=== PATIENT | male | born 1965 | race Caucasian/White ===

== ENCOUNTER 2021-01-25 18:10 | Inpatient (IN) | payer OTHER ==
[~2021-01-25] VITALS: Ht 172.7 cm; Wt 93.2 kg
[~2021-01-25 18:10] MED LIST: ATARAX25 MG PO; KEFLEX500 MG PO; MOTRIN800 MG PO; NAPROSYN500 MG PO; NKHM; PREDNICOT10 MG PO; PREDNISONE10 MG PO; VICODIN 5/500 505 MG PO
[2021-01-25 19:17] LABS: BASO % 0.3 % (0.0-1.0); EOS # 0.1 10*3/uL (0.0-0.4); EOS % 0.6 % (1.0-4.0); LYMPH # 1.4 10*3/uL (1.3-4.4); LYMPH % 17.4 % (27.0-41.0); MEAN CELL VOLUME 87.9 fl (80.0-94.0); MEAN CORPUSCULAR HGB 30.4 pg (27.0-31.0); MEAN CORPUSCULAR HGB CONC 34.6 g/dl (33.0-37.0); MEAN PLATELET VOLUME 11.2 fl (9.6-12.3); MONO # 0.5 10*3/uL (0.1-1.0); MONO % 6.9 % (3.0-9.0); NEUT # 5.8 10*3/uL (2.3-7.9); NEUT % 73.9 % (47.0-73.0); PLATELET COUNT AUTOMATED 245 10*3/uL (130-400); RED BLOOD COUNT 5.46 10*6/uL (4.50-5.90); RED CELL DISTRI WIDTH 12.7 % (0-14.5); WHITE BLOOD COUNT 7.8 10*3/uL (4.8-10.8)
[2021-01-25 19:26] LABS: ALKALINE PHOSPHATASE 143 U/L (45-117); BUN 16 mg/dl (7-24); CHLORIDE 101 mmol/L (98-107); CREATININE 1.22 mg/dL (0.70-1.30); LIPASE 106 U/L (73-393); POTASSIUM 4.5 mmol/L (3.5-5.1); SGOT/AST 12 IU/L (3-35); SGPT/ALT 33 U/L (12-78); SODIUM 134 mmol/L (136-145); TOTAL PROTEIN 7.5 gm/dL (6.4-8.2)
[2021-01-25 19:27] VITALS: BP 155/94
[2021-01-25 19:27] LABS: TROPONIN I < 0.015 ng/ml (<0.045)
[2021-01-25 19:34] VITALS: BP 155/95
[2021-01-25 20:16] LABS: BILIRUBIN Negative (Negative); BLOOD Negative (Negative); CLARITY Clear (Clear); COLOR Yellow (Yellow); GLUCOSE 3+ (Negative); KETONE 1+ (Negative); LEUKO ESTERASE Negative (Negative); NITRITE Negative (Negative); SPECIFIC GRAVITY >= 1.030 (1.001-1.030); UROBILINOGEN 0.2 E.U./dl (0.0-1.0)
[2021-01-25 20:23] LABS: BACTERIA TRACE; EPITHELIAL CELLS 0-2; RBC 0-2 rbc/hpf (0-2); WBC 0-2 wbc/hpf (0-5)
[2021-01-26] VITALS (9 sets, daily range): BP systolic 95–140; BP diastolic 54–87
[2021-01-26 06:18] LABS: BASO % 0.3 % (0.0-1.0); EOS # 0.1 10*3/uL (0.0-0.4); EOS % 1.2 % (1.0-4.0); HEMATOCRIT 47.1 % (42.0-52.0); LYMPH # 2.1 10*3/uL (1.3-4.4); LYMPH % 27.9 % (27.0-41.0); MEAN CORPUSCULAR HGB 30.2 pg (27.0-31.0); MEAN PLATELET VOLUME 11.7 fl (9.6-12.3); MONO # 0.6 10*3/uL (0.1-1.0); MONO % 7.8 % (3.0-9.0); NEUT # 4.6 10*3/uL (2.3-7.9); NEUT % 61.7 % (47.0-73.0); PLATELET COUNT AUTOMATED 219 10*3/uL (130-400); RED BLOOD COUNT 5.29 10*6/uL (4.50-5.90); RED CELL DISTRI WIDTH 12.8 % (0-14.5); WHITE BLOOD COUNT 7.4 10*3/uL (4.8-10.8)
[2021-01-26 06:29] LABS: ALBUMIN 3.5 gm/dl (3.1-4.5); ALKALINE PHOSPHATASE 111 U/L (45-117); BUN 13 mg/dl (7-24); CHLORIDE 105 mmol/L (98-107); CHOLESTEROL 159 mg/dL (<200); CREATININE 0.87 mg/dL (0.70-1.30); POTASSIUM 3.8 mmol/L (3.5-5.1); SGOT/AST 15 IU/L (3-35); SGPT/ALT 28 U/L (12-78); SODIUM 137 mmol/L (136-145); TRIGLYCERIDES 245 mg/dl (<150)
[2021-01-26 06:34] LABS: FREE T4 0.99 ng/dl (0.76-1.46); LDL CHOLESTEROL 82 mg/dL (9-159); THYROID STIM HORMONE (HS) 0.745 uIU/ml (0.358-4.75)
[2021-01-26 08:22] LABS: VITAMIN D, 25-HYDROXY 26.4 ng/mL (30-100)
[2021-01-27] VITALS: BP 123/76
[2021-01-27 06:32] LABS: BASO % 0.5 % (0.0-1.0); EOS # 0.1 10*3/uL (0.0-0.4); EOS % 1.7 % (1.0-4.0); HEMATOCRIT 48.6 % (42.0-52.0); LYMPH # 2.2 10*3/uL (1.3-4.4); LYMPH % 34.1 % (27.0-41.0); MEAN CELL VOLUME 90.3 fl (80.0-94.0); MEAN CORPUSCULAR HGB 30.5 pg (27.0-31.0); MEAN CORPUSCULAR HGB CONC 33.7 g/dl (33.0-37.0); MEAN PLATELET VOLUME 11.3 fl (9.6-12.3); MONO # 0.5 10*3/uL (0.1-1.0); MONO % 7.2 % (3.0-9.0); NEUT # 3.5 10*3/uL (2.3-7.9); NEUT % 54.9 % (47.0-73.0); PLATELET COUNT AUTOMATED 213 10*3/uL (130-400); RED BLOOD COUNT 5.38 10*6/uL (4.50-5.90); WHITE BLOOD COUNT 6.4 10*3/uL (4.8-10.8)
[2021-01-27 06:41] LABS: BUN 15 mg/dl (7-24); CHLORIDE 108 mmol/L (98-107); CREATININE 0.77 mg/dL (0.70-1.30); POTASSIUM 3.6 mmol/L (3.5-5.1); SODIUM 138 mmol/L (136-145)
[2021-01-27 08:00] VITALS: BP 96/58
[2021-01-27 12:03] VITALS: BP 114/72
[2021-01-27 16:00] VITALS: BP 124/68
[2021-01-27 19:38] VITALS: BP 148/88
[2021-01-27 20:00] VITALS: BP 135/78
[2021-01-28] VITALS: BP 119/73
[2021-01-28 06:33] LABS: BASO % 0.6 % (0.0-1.0); EOS # 0.1 10*3/uL (0.0-0.4); EOS % 1.4 % (1.0-4.0); HEMATOCRIT 48.6 % (42.0-52.0); LYMPH % 30.4 % (27.0-41.0); MEAN CELL VOLUME 90.3 fl (80.0-94.0); MEAN CORPUSCULAR HGB 29.7 pg (27.0-31.0); MEAN CORPUSCULAR HGB CONC 32.9 g/dl (33.0-37.0); MEAN PLATELET VOLUME 11.3 fl (9.6-12.3); MONO # 0.5 10*3/uL (0.1-1.0); MONO % 7.9 % (3.0-9.0); NEUT # 3.9 10*3/uL (2.3-7.9); NEUT % 58.8 % (47.0-73.0); PLATELET COUNT AUTOMATED 215 10*3/uL (130-400); RED BLOOD COUNT 5.38 10*6/uL (4.50-5.90); WHITE BLOOD COUNT 6.6 10*3/uL (4.8-10.8)
[2021-01-28 07:06] LABS: BUN 12 mg/dl (7-24); CHLORIDE 108 mmol/L (98-107); CREATININE 0.88 mg/dL (0.70-1.30); POTASSIUM 3.8 mmol/L (3.5-5.1); SODIUM 139 mmol/L (136-145)
[2021-01-28 08:00] VITALS: BP 116/78
[2021-01-28 12:00] VITALS: BP 133/93
[2021-01-28 16:00] VITALS: BP 130/87
[2021-01-28 20:00] VITALS: BP 131/81
[2021-01-29] VITALS: BP 125/73
[2021-01-29 08:00] VITALS: BP 126/77
[2021-01-29 12:00] VITALS: BP 140/82
[2021-01-29] MEDS ORDERED: Humalog SQ (13:29)
[2021-01-29] MEDS ORDERED: VITAMIN D350 MC2 PO (13:29)
[2021-01-29] MEDS ORDERED: Lantus SC (13:29)
[2021-01-29] MEDS ORDERED: AMOXICILLIN875 MG PO (13:29)
[2021-01-29] MEDS ORDERED: LISINOPRIL5 MG PO (13:29)
[2021-01-29] MEDS ORDERED: ATORVASTATIN CA40 M1 PO (13:29)
[2021-01-29] MEDS ORDERED: GLUCOPHAGE500 MG PO (13:29)
[2021-01-29] MEDS ORDERED: ASPIRIN ADULT L81 M2 PO (13:29)
[2021-01-29] MEDS ORDERED: MECLIZINE HCL25 M2 PO (13:29)
[2021-01-29 16:00] VITALS: BP 126/90
== END 2021-01-29 17:40 | disposition home health service (06) | DRG 149 ==
LOC: ED 18:10 → EDHOLD 21:54 → 4E 21:54
PROVIDERS: Emergency Medicine; Internal Medicine; ADMIT Family Medicine; ATTEND Family Medicine
DX: R42 Dizziness and giddiness (principal); E87.1 Hypo-osmolality and hyponatremia; D49.2 Neoplasm of unspecified behavior of bone, soft tissue, and skin; J32.0 Chronic maxillary sinusitis; R79.82 Elevated C-reactive protein (CRP); R74.8 Abnormal levels of other serum enzymes; G93.0 Cerebral cysts; K08.109 Complete loss of teeth, unspecified cause, unspecified class; R06.82 Tachypnea, not elsewhere classified; E55.9 Vitamin D deficiency, unspecified; I11.9 Hypertensive heart disease without heart failure; E11.65 Type 2 diabetes mellitus with hyperglycemia; H53.8 Other visual disturbances; Z80.9 Family history of malignant neoplasm, unspecified

== ENCOUNTER 2021-02-03 18:46 | Emergency (ER) | payer OTHER ==
[~2021-02-03] VITALS: Wt 88.5 kg
[~2021-02-03 18:46] MED LIST changes: +AMOXICILLIN875 MG PO; +ASPIRIN ADULT L81 M2 PO; +ATORVASTATIN CA40 M1 PO; +GLUCOPHAGE500 MG PO; +Humalog SQ; +LISINOPRIL5 MG PO; +Lantus SC; +MECLIZINE HCL25 M2 PO; +VITAMIN D350 MC2 PO
== END 2021-02-03 21:11 | disposition home or self-care (01) ==
LOC: ED 18:46
DX: R51.9 Headache, unspecified (principal); Z79.2 Long term (current) use of antibiotics; Z79.899 Other long term (current) drug therapy; Z79.82 Long term (current) use of aspirin; Z79.4 Long term (current) use of insulin

== ENCOUNTER 2021-03-31 12:08 | Emergency (ER) | payer OTHER ==
[2021-03-31 12:59] LABS: BASO % 0.3 % (0.0-1.0); EOS % 0.7 % (1.0-4.0); HEMATOCRIT 51.2 % (42.0-52.0); LYMPH # 1.3 10*3/uL (1.3-4.4); LYMPH % 21.7 % (27.0-41.0); MEAN CELL VOLUME 88.4 fl (80.0-94.0); MEAN CORPUSCULAR HGB 29.9 pg (27.0-31.0); MEAN CORPUSCULAR HGB CONC 33.8 g/dl (33.0-37.0); MEAN PLATELET VOLUME 11.1 fl (9.6-12.3); MONO # 0.4 10*3/uL (0.1-1.0); MONO % 6.1 % (3.0-9.0); NEUT # 4.3 10*3/uL (2.3-7.9); NEUT % 70.7 % (47.0-73.0); PLATELET COUNT AUTOMATED 248 10*3/uL (130-400); RED BLOOD COUNT 5.79 10*6/uL (4.50-5.90); RED CELL DISTRI WIDTH 12.3 % (0-14.5)
[2021-03-31 13:15] LABS: ALBUMIN 3.9 gm/dl (3.1-4.5); ALKALINE PHOSPHATASE 101 U/L (45-117); BUN 14 mg/dl (7-24); CHLORIDE 104 mmol/L (98-107); LIPASE 76 U/L (73-393); POTASSIUM 4.2 mmol/L (3.5-5.1); SGOT/AST 8 IU/L (3-35); SGPT/ALT 27 U/L (12-78); SODIUM 135 mmol/L (136-145); TOTAL PROTEIN 7.5 gm/dL (6.4-8.2)
[2021-03-31 13:24] LABS: CPK 47 U/L (39-308)
[2021-03-31 13:26] LABS: TROPONIN I < 0.015 ng/ml (<0.045)
[2021-03-31 13:29] LABS: THYROID STIM HORMONE (HS) 0.227 uIU/ml (0.358-4.75)
[2021-03-31 14:35] LABS: BILIRUBIN Negative (Negative); BLOOD Negative (Negative); CLARITY Clear (Clear); COLOR Yellow (Yellow); GLUCOSE 3+ (Negative); KETONE 2+ (Negative); LEUKO ESTERASE Negative (Negative); NITRITE Negative (Negative); PH 6.5 (4.5-8.0); SPECIFIC GRAVITY >= 1.030 (1.001-1.030)
[2021-03-31 14:44] LABS: BACTERIA TRACE; EPITHELIAL CELLS 0-2; RBC 0-2 rbc/hpf (0-2)
== END 2021-03-31 16:56 | disposition home or self-care (01) ==
LOC: ED 12:08
PROVIDERS: Emergency Medicine
DX: E05.90 Thyrotoxicosis, unspecified without thyrotoxic crisis or storm (principal); Z20.822 Contact with and (suspected) exposure to COVID-19; R10.9 Unspecified abdominal pain; E11.9 Type 2 diabetes mellitus without complications; I10 Essential (primary) hypertension; Z79.2 Long term (current) use of antibiotics; Z79.899 Other long term (current) drug therapy; Z79.82 Long term (current) use of aspirin; Z79.4 Long term (current) use of insulin

== ENCOUNTER 2021-04-29 22:43 | Observation (INO) | payer OTHER ==
[~2021-04-29] VITALS: Ht 182.8 cm; Wt 93.5 kg
[2021-04-29 22:48] VITALS: BP 155/97
[2021-04-29 23:24] LABS: BASO % 0.3 % (0.0-1.0); EOS % 0.5 % (1.0-4.0); HEMATOCRIT 44.6 % (42.0-52.0); LYMPH % 25.5 % (27.0-41.0); MEAN CORPUSCULAR HGB 30.3 pg (27.0-31.0); MEAN CORPUSCULAR HGB CONC 35.7 g/dl (33.0-37.0); MEAN PLATELET VOLUME 10.8 fl (9.6-12.3); MONO # 0.6 10*3/uL (0.1-1.0); MONO % 7.1 % (3.0-9.0); NEUT # 5.2 10*3/uL (2.3-7.9); NEUT % 65.5 % (47.0-73.0); PLATELET COUNT AUTOMATED 248 10*3/uL (130-400); RED BLOOD COUNT 5.25 10*6/uL (4.50-5.90); RED CELL DISTRI WIDTH 12.2 % (0-14.5); WHITE BLOOD COUNT 7.9 10*3/uL (4.8-10.8)
[2021-04-29 23:40] LABS: ALBUMIN 3.6 gm/dl (3.1-4.5); ALKALINE PHOSPHATASE 142 U/L (45-117); BUN 19 mg/dl (7-24); CHLORIDE 96 mmol/L (98-107); CREATININE 1.24 mg/dL (0.70-1.30); POTASSIUM 3.9 mmol/L (3.5-5.1); SGOT/AST 6 IU/L (3-35); SGPT/ALT 23 U/L (12-78); SODIUM 129 mmol/L (136-145)
[2021-04-29 23:49] LABS: URINE AMPHETAMINES < 1000 (1000ng/ml); URINE BARBITURATES < 200 (200ng/ml); URINE BENZODIAZEPINES < 200 (200ng/ml); URINE CANNABINOIDS (THC) < 50 (50ng/ml); URINE COCAINE < 300 (300ng/ml); URINE METHADONE < 300 (300ng/ml); URINE OPIATES < 300 (300ng/ml)
[2021-04-29 23:54] LABS: URINE PHENCYCLIDINE < 25 (25ng/ml)
[2021-04-29 23:55] LABS: ETHYL ALCOHOL < 3.0 mg/dl (<3)
[2021-04-30] VITALS (8 sets, daily range): BP systolic 105–148; BP diastolic 60–88
[2021-05-01 06:41] LABS: ALBUMIN 3.1 gm/dl (3.1-4.5); ALKALINE PHOSPHATASE 89 U/L (45-117); BUN 15 mg/dl (7-24); CHLORIDE 104 mmol/L (98-107); CREATININE 0.97 mg/dL (0.70-1.30); POTASSIUM 4.2 mmol/L (3.5-5.1); SGOT/AST 6 IU/L (3-35); SGPT/ALT 20 U/L (12-78); SODIUM 136 mmol/L (136-145); TOTAL PROTEIN 6.4 gm/dL (6.4-8.2)
[2021-05-01 06:48] LABS: BASO % 0.4 % (0.0-1.0); EOS % 0.6 % (1.0-4.0); HEMATOCRIT 45.1 % (42.0-52.0); LYMPH # 1.6 10*3/uL (1.3-4.4); LYMPH % 23.2 % (27.0-41.0); MEAN CORPUSCULAR HGB 30.3 pg (27.0-31.0); MEAN CORPUSCULAR HGB CONC 33.7 g/dl (33.0-37.0); MEAN PLATELET VOLUME 10.8 fl (9.6-12.3); MONO # 0.5 10*3/uL (0.1-1.0); MONO % 6.8 % (3.0-9.0); NEUT # 4.6 10*3/uL (2.3-7.9); NEUT % 67.8 % (47.0-73.0); PLATELET COUNT AUTOMATED 222 10*3/uL (130-400); RED BLOOD COUNT 5.01 10*6/uL (4.50-5.90); RED CELL DISTRI WIDTH 12.7 % (0-14.5); WHITE BLOOD COUNT 6.8 10*3/uL (4.8-10.8)
[2021-05-01 08:00] VITALS: BP 134/85
[2021-05-01 12:00] VITALS: BP 124/76
[2021-05-01] MEDS ORDERED: ACCU-CHEK1 EAC2 MC (13:01)
[2021-05-01] MEDS ORDERED: LANTUS SOL100 UNIT/1 SC (13:01)
[2021-05-01] MEDS ORDERED: ACCU-CHEK1 EACH MC (13:01)
[2021-05-01] MEDS ORDERED: GLUCTESTSTRIP SC (13:01)
[2021-05-01] MEDS ORDERED: LEVETIRACETAM250 MG PO (13:01)
[2021-05-01] MEDS ORDERED: HUMALOG100 UNIT/2 SC (13:01)
[2021-05-01] MEDS ORDERED: KEPPRA1000 MG PO (13:05)
== END 2021-05-01 16:05 | disposition home health service (06) ==
LOC: ED 22:43 → 4E 04-30 09:24 → EDHOLD 04-30 09:24 → 4E 04-30 20:47
PROVIDERS: Internal Medicine; Registered Nurse; ADMIT Internal Medicine; ATTEND Internal Medicine
DX: R56.9 Unspecified convulsions (principal); E87.1 Hypo-osmolality and hyponatremia; E44.1 Mild protein-calorie malnutrition; Z20.822 Contact with and (suspected) exposure to COVID-19; E11.65 Type 2 diabetes mellitus with hyperglycemia; I10 Essential (primary) hypertension; R00.0 Tachycardia, unspecified; R74.8 Abnormal levels of other serum enzymes; G93.0 Cerebral cysts; E78.5 Hyperlipidemia, unspecified; Z79.899 Other long term (current) drug therapy; Z79.01 Long term (current) use of anticoagulants

== ENCOUNTER 2021-05-05 12:53 | Emergency (ER) | payer OTHER ==
[~2021-05-05] VITALS: Ht 182.8 cm; Wt 86.2 kg
[~2021-05-05 12:53] MED LIST changes: +ACCU-CHEK1 EAC2 MC; +ACCU-CHEK1 EACH MC; +GLUCTESTSTRIP SC; +HUMALOG100 UNIT/2 SC; +KEPPRA1000 MG PO; +LANTUS SOL100 UNIT/1 SC; +LEVETIRACETAM250 MG PO
[2021-05-05] MEDS ORDERED: LEVETIRACETAM1000 M1 PO (13:52)
[2021-05-05 14:25] LABS: BASO % 0.3 % (0.0-1.0); EOS % 0.5 % (1.0-4.0); HEMATOCRIT 48.8 % (42.0-52.0); LYMPH # 1.7 10*3/uL (1.3-4.4); LYMPH % 21.9 % (27.0-41.0); MEAN CELL VOLUME 89.4 fl (80.0-94.0); MEAN CORPUSCULAR HGB 30.6 pg (27.0-31.0); MEAN CORPUSCULAR HGB CONC 34.2 g/dl (33.0-37.0); MEAN PLATELET VOLUME 10.1 fl (9.6-12.3); MONO # 0.6 10*3/uL (0.1-1.0); MONO % 7.5 % (3.0-9.0); NEUT # 5.3 10*3/uL (2.3-7.9); NEUT % 68.8 % (47.0-73.0); PLATELET COUNT AUTOMATED 290 10*3/uL (130-400); RED BLOOD COUNT 5.46 10*6/uL (4.50-5.90); RED CELL DISTRI WIDTH 12.6 % (0-14.5); WHITE BLOOD COUNT 7.7 10*3/uL (4.8-10.8)
[2021-05-05 14:41] LABS: ALBUMIN 3.7 gm/dl (3.1-4.5); ALKALINE PHOSPHATASE 100 U/L (45-117); BUN 16 mg/dl (7-24); CHLORIDE 104 mmol/L (98-107); CREATININE 1.21 mg/dL (0.70-1.30); POTASSIUM 4.1 mmol/L (3.5-5.1); SGOT/AST 9 IU/L (3-35); SGPT/ALT 28 U/L (12-78); SODIUM 137 mmol/L (136-145); TOTAL PROTEIN 7.1 gm/dL (6.4-8.2)
== END 2021-05-05 15:14 | disposition home or self-care (01) ==
LOC: ED 12:53
PROVIDERS: Physician Assistant
DX: G40.909 Epilepsy, unspecified, not intractable, without status epilepticus (principal)